=== PATIENT | female | born 1935 | race Hispanic/Latino ===

== ENCOUNTER 2018-12-09 15:00 | Observation (INO) | payer MEDICARE, OTHER ==
[~2018-12-09] VITALS: Ht 149.9 cm; Wt 67.8 kg
--- NOTE | 2018-12-09 16:43 | Diagnostic Imaging Report ---
A single frontal view of the chest. HISTORY: CHEST PAIN COMPARISON: Chest radiograph March 29, 2009 DISCUSSION: Portable technique, limits sensitivity of the exam. Soft tissue attenuation markedly limits sensitivity of the exam. Overlying monitoring leads Tubes/Lines: None Lungs and pleura: Low lung volumes result in bibasilar vascular crowding, accentuation of the pulmonary interstitial markings, central pulmonary vasculature, and the cardiac silhouette. Allowing for these limitations, the findings are as follows: Mild volume loss at the left lung base periphery greater than the right infrahilar region. No evidence of a consolidative pneumonia or pulmonary alveolar edema. No definite pleural effusion or pneumothorax is identified. Heart and mediastinum: The cardiac silhouette appears prominent. Atherosclerotic vascular calcifications at the aortic arch. Bones and soft tissues: Appear unremarkable, given this limited exam. IMPRESSION: 1. Left basilar greater than right infrahilar atelectasis. Superimposed pneumonia or aspiration may be a consideration the appropriate setting. 2. Recommend short term follow up routine PA and lateral chest radiographs, in 6 to 8 weeks, to evaluate for resolution. Signed by: Dr. Ganga Cormier D.O., M.M.M. on 12/09/2018 4:40 PM
[2018-12-09 16:57] LABS: BILIRUBIN,URINE NEGATIVE (NEGATIVE); CLARITY,URINE SL CLOUDY (CLEAR); COLOR,URINE YELLOW (YELLOW); KETONES,URINE NEGATIVE (NEGATIVE); LEUKOCYTE ESTERASE ,URINE SMALL (NEGATIVE); NITRITE,URINE NEGATIVE (NEGATIVE); PROTEIN,URINE DIPSTICK NEGATIVE (NEGATIVE); URINE UROBILINOGEN 0.2 mg/dL (0.2 - 1)
[2018-12-09 17:06] LABS: INR 0.87; PROTHROMBIN TIME 12.3 seconds (11.9-14.5)
[2018-12-09 17:07] LABS: PARTIAL THROMBOPLASTIN TIME 29.7 seconds (23.8-35.5)
[2018-12-09 17:09] LABS: BACTERIA,URINE MANY /HPF; EPITHELIAL CELLS,URINE MANY /LPF
[2018-12-09 17:15] LABS: BASOPHILS % 0.6 % (0.0-1.0); EOSINOPHILS # (AUTO) 0.1 (0.0-0.4); EOSINOPHILS % 2.1 % (0.0-6.0); HEMATOCRIT 37.5 % (34.2-44.1); HEMOGLOBIN 12.4 g/dL (12.0-16.0); LYMPHOCYTES # (AUTO) 1.3 (1.0-3.2); LYMPHOCYTES % 24.6 % (18.0-39.1); MEAN CORPUSCULAR HEMOGLOBIN 32.4 pg (28-32); MEAN CORPUSCULAR HGB CONC 33.1 g/dL (31-35); MEAN CORPUSCULAR VOLUME 97.9 fL (81-99); MONOCYTES # (AUTO) 0.5 (0.2-0.8); MONOCYTES % 8.8 % (4.4-11.3); NEUTROPHILS # (AUTO) 3.3 (2.1-6.9); NEUTROPHILS % 63.5 % (38.7-80.0); PLATELET COUNT 244 x10e3/uL (140-360); RED BLOOD COUNT 3.83 x10e6/uL (3.6-5.1); RED CELL DISTRIBUTION WIDTH 14.6 % (11.7-14.4)
[2018-12-09] MEDS ORDERED: HYDRALAZINE HCL 20 MG/ML VIAL IV ONE (17:58)
[2018-12-09 18:02] LABS: ALBUMIN 3.5 g/dL (3.5-5.0); ANION GAP 13.2 mmol/L (8-16); CALCIUM 9.5 mg/dL (8.4-10.2); CREATININE, SERUM 1.08 mg/dL (0.57-1.11); POTASSIUM 3.2 mmol/L (3.5-5.1)
[2018-12-09] MEDS ORDERED: ASPIRIN 81 MG CHEW TAB PO ONE (18:15)
--- OUTSIDE RECORDS SUMMARY | 2018-12-09 18:17 | XMS REPORT ---
Author Author [facility] Address Unknown Phone Unavailable Care Team Providers Care R D Engineer Name Role Phone Brit KENT Unavailable Unavailable Problems This patient has no known problems. Allergies, Adverse Reactions, Alerts This patient has no known allergies or adverse reactions. Medications This patient has no known medications. Results Test Description Test Time Test Comments Text Results Atomic Results Result Comments CHEST SINGLE (PORTABLE) 2018-12-09 16:38:00 [facility] [address] [place] [address] Patient Name: ALESSANDRA MARQUES MR #: [id number] : 1935 Age/Sex: 83/F Req #: [id number] Adm Physician: Ordered by: CALEB KENT MD Report #: [id number] Location: ER Room/Bed: Procedure: [id number] DX/CHEST SINGLE (PORTABLE) Exam Date: 12/09/18 Exam Time: 1620 REPORT STATUS: Signed A single frontal view of the chest. HISTORY: CH EST PAIN COMPARISON: Chest radiograph March 29, 2009 DISCUSSION: Portable technique, limits sensitivity of the exam. Soft tissue attenuation markedly limits sensitivity of the exam. Overlying monitoring leads Tubes/Lines: None Lungs and pleura: Low lung volumes result in bibasilar vascular crowding, accentuation of the pulmonary interstitial markings, central pulmonary vasculature, and the cardiac silhouette. Allowing for these limitations, the findings are as follows: Mild volume loss at the left lung base periphery greater than the right infrahilar region. No evidence of a consolidative pneumonia or pulmonary alveolar edema. No definite pleural effusion or pneumothorax is identified. Heart and mediastinum: The cardiac silhouette appears prominent. Atherosclerotic vascular calcifications at the aortic arch. Bones and soft tissues: Appear unremarkable, given this limited exam. IMPRESSION: 1. Left basilar greater than right infrahilar atelectasis. Superimposed pneumonia or aspiration may be a consideration the appropriate setting. 2. Recommend short term follow up routine PA and lateral chest radiographs, in 6 to 8 weeks, to evaluate for resolution. Signed by: Dr. Charles Cormier D.O., M.M.M. on 12/09/2018 4:40 PM Dictated By: CHARLES CORMIER DO 1640 Transcribed By: RODERICK on 12/09/18 1640 COPY TO: CALEB KENT MD
[2018-12-09 18:21] LABS: CREATINE KINASE MB 1.1 ng/mL (0-5.0)
--- NOTE | 2018-12-09 19:02 | NUR ---
tele #[phone] placed on [pt.
[2018-12-09] MEDS: SODIUM CHLORIDE 0.9% 1000ML 1,000 ML IV SCH (19:31)
[2018-12-09 19:56] VITALS: BP 185/73
[2018-12-09 20:00] VITALS: BP 134/63
[2018-12-09] MEDS ORDERED: ULTRAM 50MG50 MG PO (20:14)
[2018-12-09] MEDS ORDERED: MECLIZINE HCL12.5 MG PO (20:14)
[2018-12-09 22:23] VITALS: BP 134/63
[2018-12-09 23:40] VITALS: BP 98/68
[2018-12-10 02:12] LABS: CREATINE KINASE MB 1.2 ng/mL (0-5.0)
[2018-12-10 04:40] VITALS: BP 137/74
[2018-12-10 05:27] LABS: BASOPHILS % 0.9 % (0.0-1.0); EOSINOPHILS # (AUTO) 0.1 (0.0-0.4); EOSINOPHILS % 2.2 % (0.0-6.0); HEMATOCRIT 32.8 % (34.2-44.1); HEMOGLOBIN 10.3 g/dL (12.0-16.0); LYMPHOCYTES # (AUTO) 1.2 (1.0-3.2); MEAN CORPUSCULAR HEMOGLOBIN 31.5 pg (28-32); MEAN CORPUSCULAR HGB CONC 31.4 g/dL (31-35); MEAN CORPUSCULAR VOLUME 100.3 fL (81-99); MONOCYTES # (AUTO) 0.4 (0.2-0.8); MONOCYTES % 9.5 % (4.4-11.3); NEUTROPHILS # (AUTO) 2.8 (2.1-6.9); NEUTROPHILS % 61.2 % (38.7-80.0); PLATELET COUNT 206 x10e3/uL (140-360); RED BLOOD COUNT 3.27 x10e6/uL (3.6-5.1); RED CELL DISTRIBUTION WIDTH 14.3 % (11.7-14.4)
[2018-12-10 05:48] LABS: ALBUMIN/GLOBULIN RATIO 1.1 (0.8-2.0); ANION GAP 11.5 mmol/L (8-16); CALCIUM 8.8 mg/dL (8.4-10.2); CREATININE, SERUM 0.93 mg/dL (0.57-1.11); POTASSIUM 3.5 mmol/L (3.5-5.1)
--- NOTE | 2018-12-10 06:41 | Diagnostic Imaging Report ---
Examination: Single AP view of the chest. COMPARISON: December 09, 2018 INDICATION: Chest pain DISCUSSION: Lines/tubes: None. Lungs: The lungs are well inflated and clear. No pneumonia or pulmonary edema. Pleura: No pleural effusion or pneumothorax. Heart and mediastinum: The heart and the mediastinum are unremarkable. Bones and soft tissues: No acute bony abnormalities. IMPRESSION: 1. No acute cardiopulmonary abnormalities. Signed by: Dr. Obdulio Ma M.D. on 12/10/2018 6:38 AM
[2018-12-10 08:05] VITALS: BP 143/74
[2018-12-10 08:08] VITALS: BP 143/74
[2018-12-10] MEDS: SODIUM CHLORIDE 0.9% 1000ML 1,000 ML IV SCH (08:32)
[2018-12-10] MEDS ORDERED: ASPIRIN 81 MG ENTERIC COATED PO SCH (09:00)
[2018-12-10 10:54] LABS: CREATINE KINASE MB 1.1 ng/mL (0-5.0)
[2018-12-10 11:26] VITALS: BP 110/63
[2018-12-10] MEDS ORDERED: LIPITOR20 MG PO (13:29)
[2018-12-10] MEDS ORDERED: ECOTRIN81 MG (13:29)
--- NOTE | 2018-12-10 21:19 | Discharge Summary ---
PRIMARY CARE PHYSICIAN: Sofie Rose MD CHIEF COMPLAINT: Chest pain. SUMMARY: The patient was discharged home today. Cardiac enzymes negative. EKG, otherwise unremarkable. She had a sinus bradycardia at 60 beats per minute, asymptomatic. Repeated EKG showed normal sinus rhythm. The patient is otherwise, stable. She has no chest pain now. Cardiac enzymes are negative. Chest x-ray unremarkable. Discussed with the patient and her daughter and they want to go home today. Follow up with a construction technician, Dr. Carrizales. I also has referred to go for outpatient workup including echocardiogram and stress test. The patient is stable. Because of her age, I went ahead and put the patient on Ecotrin 81 mg daily and Lipitor 10 mg at night. She will resume her other home medication. No blood pressure medication needed. No beta-erick needed because of the episode of bradycardia and heart rate is 60 beats per minute now. The patient is comfortable, asymptomatic, discharged home today. Follow up with Dr. Vazquez next week. MD ADRIENNE Trujillo/SILVINAL /[id number]
== END 2018-12-10 13:50 | disposition home or self-care (01) ==
LOC: ER 15:00 → ERHOLD 18:13 → IMCU 19:20
PROVIDERS: ADMIT Internal Medicine; ATTEND Internal Medicine
DX: R07.89 Other chest pain (principal); Z82.49 Family history of ischemic heart disease and other diseases of the circulatory system; Z83.3 Family history of diabetes mellitus; I10 Essential (primary) hypertension; M19.90 Unspecified osteoarthritis, unspecified site; R00.1 Bradycardia, unspecified
CPT/HCPCS: 36415; 71045 ×2; 80053 ×2; 81001; 82550 ×2; 82553 ×2; 83880; 84484 ×2; 85025 ×2; 85610; 85730; 93005 ×2; 99284; G0378 ×2; J0360; J7030 ×2

== ENCOUNTER → 2019-05-19 | Outpatient (CLI) | payer MEDICARE ==
[~2019-05-19] MED LIST: ECOTRIN81 MG; LIPITOR20 MG PO; MECLIZINE HCL12.5 MG PO; ULTRAM 50MG50 MG PO
--- NOTE | 2019-05-19 16:05 | Diagnostic Imaging Report ---
Bone Mineral Density, 05/19/2019. Clinical History: Postmenopausal, Osteoporosis Screening Comparison: None. Findings: Bone Mineral Density Measurement (BMD) - Lumbar Spine: 0.826 gm/cm2 Left Femoral Neck: 0.489 gm/cm2 Standard Deviation as compared to the young adult population (T -score)- Lumbar Spine: -2.0 Left Femoral Neck: -3.3 Standard Deviation as compared to the age matched controls (Z-score)- Lumbar Spine: 0.8 Left Femoral Neck: 0.9 IMPRESSION: These findings are consistent with osteopenia of the lumbar spine. There is 1-2 times increased risk of an osteoporotic fracture of the lumbar spine as compared to the young adult population. 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 There is right or then a 2 times increased risk of an osteoporotic fracture of the femoral necks as compared to the young adult population. Diagnostic criteria (World Health Organization)- Normal: BMD measurement less than one standard deviation from young adult population Osteopenia: BMD measurement between 1 and 2.5 standard deviations below Osteoporosis: BMD measurement greater than 2.5 standard deviations below Severe osteoporosis: Osteoporosis and one or more fragility fractures Signed by: Minesh Lawrence MD on 05/19/2019 4:02 PM
--- NOTE | 2019-06-01 10:20 | Diagnostic Imaging Report ---
#[id number] - [id number] #BILATERAL DIGITAL SCREENING MAMMOGRAM WITH CAD: 05/19/2019 CLINICAL: Routine screening. No prior exams were available for comparison. Current study contains 6 films. The tissue of both breasts is predominantly fatty. Current study was also evaluated with a Computer Aided Detection (CAD) system. There are benign vascular calcifications in both breasts. Benign appearing calcifications are noted bilaterally. There are benign nodes in both breasts. No significant masses, calcifications, or other findings are seen in either breast. IMPRESSION: BENIGN There is no mammographic evidence of malignancy. A 1 year screening mammogram is recommended. The patient will be notified by letter of the results. ANDIE ARSHAD M.D. ct/penrad:05/31/2019 12:32:06 Storage Garage Attendant: Shruthi TOURE)(M), [facility] letter sent: Normal Exam Mammogram BI-RADS: 2 Benign
== END ==
LOC: MAMMO 12:41
PROVIDERS: ATTEND Internal Medicine
DX: Z12.31 Encounter for screening mammogram for malignant neoplasm of breast (principal); M81.0 Age-related osteoporosis without current pathological fracture
CPT/HCPCS: 77067; 77080

== ENCOUNTER → 2020-01-19 | Outpatient (CLI) | payer MEDICARE ==
[~2020-01-19] MED LIST changes: +IOPAMIDOL 370 MG/ML 200 ML INFUS..BTL INJ ONE; +LISINOPRIL10 MG PO; +SODIUM CHLORIDE 0.9% 500ML 500 ML ONE; +SODIUM CHLORIDE 0.9% 50ML 50 ML ONE; +TRULANCE3 MG PO; +[UNRECOGNIZED DRUG - OTHER] PO; +[UNRECOGNIZED DRUG - OTHER] PO
[2020-01-19 11:34] LABS: CREATININE, SERUM 1.09 mg/dL (0.57-1.11)
--- NOTE | 2020-01-19 14:16 | Diagnostic Imaging Report ---
EXAM: CT Abdomen and Pelvis WITH contrast INDICATION: Lower abdominal pain. COMPARISON: Chest radiograph 03/28/2019. TECHNIQUE: Abdomen and pelvis were scanned utilizing a multidetector helical scanner from the lung base to the pubic symphysis after administration of IV contrast. Coronal and sagittal reformations were obtained. Routine protocol was performed. Scan was performed during portal venous phase. IV CONTRAST: 100 cc of Isovue 370. ORAL CONTRAST: Water. COMPLICATIONS: None RADIATION DOSE: Total DLP: 747.4 mGy*cm Estimated effective dose: (DLP x 0.015 x size factor) mSv CTDIvol has been reviewed. It is below the limits set by the Radiation Protocol Committee (RPC). FINDINGS: LINES and TUBES: None. LOWER THORAX: Left lower lobe calcified granuloma. Patchy dependent atelectasis. Coronary atherosclerosis. Mitral annular calcifications. Aortic valvular calcifications. HEPATOBILIARY: Diffuse hepatic steatosis. Possible post surgical changes in the right hepatic lobe. No evidence of focal lesion. No biliary ductal dilation. GALLBLADDER: Status post cholecystectomy. SPLEEN: No splenomegaly. PANCREAS: No focal masses or ductal dilatation. ADRENALS: A 9 mm indeterminate right adrenal nodule (series 2, image 25; 75 HU). KIDNEYS/URETERS: Kidneys enhance symmetrically. No evidence of hydronephrosis, solid mass, or stone. GI TRACT: No evidence of wall thickening or distension. Appendix is normal. PELVIC ORGANS/BLADDER: Decompressed bladder with circumferential wall thickening and surrounding inflammatory changes. Status post hysterectomy. LYMPH NODES: No lymphadenopathy. VESSELS: There is moderate to severe atherosclerotic disease in the aorta and major arterial branches. Focal ectasia of the infrarenal abdominal aorta. PERITONEUM / RETROPERITONEUM: No free air or fluid. BONES AND SOFT TISSUES: Diffuse osteopenia. Moderate degenerative changes of the visualized spine. Grade 1 anterolisthesis of L4 on L5. Moderate wedge compression deformity at T11, unchanged. Subacute healing right superior and inferior pubic ramus fractures. Fat-containing umbilical and bilateral inguinal hernias. CONCLUSION: Circumferential bladder wall thickening with inflammatory changes, suggestive of cystitis in the appropriate clinical setting. Indeterminate 9 mm right adrenal nodule, for which a follow-up adrenal protocol CT or MRI may be considered. Diffuse mild hepatic steatosis. Signed by: Dr. Eloisa Baxter MD on 01/19/2020 2:13 PM
== END ==
LOC: CT 10:41
PROVIDERS: ATTEND Internal Medicine Gastroenterology
DX: R10.30 Lower abdominal pain, unspecified (principal)
CPT/HCPCS: 36415; 74177; 82565; 84520; 96360; J7040; Q9967

== ENCOUNTER → 2020-01-29 | Day surgery (SDC) | payer MEDICARE, OTHER ==
[2020-01-24 14:22] LABS: BASOPHILS # (AUTO) 0.1 (0.0-0.1); BASOPHILS % 0.7 % (0.0-1.0); EOSINOPHILS # (AUTO) 0.2 (0.0-0.4); EOSINOPHILS % 2.8 % (0.0-6.0); HEMATOCRIT 38.5 % (34.2-44.1); LYMPHOCYTES # (AUTO) 1.5 (1.0-3.2); LYMPHOCYTES % 20.1 % (18.0-39.1); MEAN CORPUSCULAR HEMOGLOBIN 30.8 pg (28-32); MEAN CORPUSCULAR HGB CONC 31.2 g/dL (31-35); MONOCYTES # (AUTO) 0.7 (0.2-0.8); MONOCYTES % 9.3 % (4.4-11.3); NEUTROPHILS # (AUTO) 4.8 (2.1-6.9); NEUTROPHILS % 66.7 % (38.7-80.0); PLATELET COUNT 280 x10e3/uL (140-360); RED BLOOD COUNT 3.89 x10e6/uL (3.6-5.1); RED CELL DISTRIBUTION WIDTH 14.5 % (11.7-14.4)
[~2020-01-29] MED LIST changes: +FENTANYL CITRATE/PF 100MCG/2 ML INJ ONE; +GLUCAGON FOR INJ 1 MG VIAL ONE; +HYOSCYAMINE 0.125 MG TAB ONE; -IOPAMIDOL 370 MG/ML 200 ML INFUS..BTL INJ ONE; +LIDOCAINE HCL 2% LOCAL INJ 5 ML SDV VIAL INJ ONE; +METOCLOPRAMIDE HCL 10 MG/2ML VIAL ONE; +ONDANSETRON HCL INJ 2MG/ML 2ML 2 MG/ML VIAL ONE; +PROPOFOL IV EMULSION 10 MG/ML 20 ML VIAL ONE; -SODIUM CHLORIDE 0.9% 500ML 500 ML ONE; -SODIUM CHLORIDE 0.9% 50ML 50 ML ONE
[2020-01-29 12:17] VITALS: BP 140/79
--- NOTE | 2020-01-29 12:53 | Operative Report ---
DATE OF PROCEDURE: 01/29/2020 SURGEON: Michael Sanchez MD PROCEDURE: EGD with biopsies and colonoscopy with polypectomy and biopsies. INDICATIONS FOR EGD: Heartburn, bloating. INDICATIONS FOR COLONOSCOPY: Colorectal cancer screening, lower abdominal pain. MEDICATIONS: The patient was done under MAC. Please see anesthesiologist's note. PROCEDURE IN DETAIL: With the patient in left lateral decubitus position, a flexible fiberoptic Olympus gastroscope was introduced into the esophagus under direct visualization without any difficulty. There was some patchy erythema noted in distal esophagus. The GE junction was somewhat nodular that was biopsied. The scope was then advanced with ease into the stomach traversing a small sliding hiatal hernia. Mucosa overlying the antrum and the body revealed some patchy erythema and low-grade to moderate edema and biopsies were obtained and sent to stain for H pylori. Pylorus was of normal contour and shape, was intubated with ease and the scope was advanced all the way to the second portion of the duodenum. Biopsies were obtained from the proximal second portion and the duodenal bulb to rule out sprue. The scope was then withdrawn back into the stomach and retroflexed, the mucosa overlying the fundus and cardia appeared to be within normal limits. The scope was then straightened out, it was subsequently withdrawn. The patient tolerated the procedure well. IMPRESSION: 1. Distal esophagitis, mild. 2. Gastroesophageal junction, somewhat nodular, biopsied. 3. Small sliding hiatal hernia. 4. Gastritis, biopsied. Biopsies sent to stain for H pylori. 5. Rule out sprue. PLAN: Follow up histology. Initiate Protonix 40 mg one p.o. q.a.m. before meals. The patient was then turned around. After adequate lubrication of the anal canal, a flexible fiberoptic Olympus colonoscope was inserted into the rectum with ease and advanced all the way to the cecum. Mucosa overlying the cecum appeared to be within normal limits. Two minute polyps were removed per cold snare polypectomy from the ascending colon. The transverse appeared to be within normal limits. Some mild patchy inflammatory changes were noted in the left colon. Random biopsies were obtained. The scope was then retroflexed into the distal rectum and small internal hemorrhoids were noted, none of which was actively bleeding. The scope was then straightened out, it was subsequently withdrawn. The patient tolerated the procedure well. IMPRESSION: 1. Ascending colon polyps x2, cold snared. 2. Mild patchy inflammatory changes, left colon, random biopsies obtained. 3. Internal hemorrhoids, none actively bleeding. PLAN: Followup histology. Initiate high-fiber, low-fat diet. Initiate high-fiber supplement. Start Align one p.o. daily. Michael Sanchez MD [facility] [place] /[id number] cc: Sofie Rose MD
== END | disposition home or self-care (01) ==
LOC: OR 09:05
PROVIDERS: ATTEND Internal Medicine Gastroenterology
DX: K21.9 Gastro-esophageal reflux disease without esophagitis (principal); Z90.49 Acquired absence of other specified parts of digestive tract; Z88.5 Allergy status to narcotic agent; R10.30 Lower abdominal pain, unspecified; R11.0 Nausea; R12 Heartburn; R14.0 Abdominal distension (gaseous); K59.09 Other constipation; Z68.29 Body mass index [BMI] 29.0-29.9, adult; R03.0 Elevated blood-pressure reading, without diagnosis of hypertension; F03.90 Unspecified dementia, unspecified severity, without behavioral disturbance, psychotic disturbance, mood disturbance, and anxiety; F41.9 Anxiety disorder, unspecified; K21.0 Gastro-esophageal reflux disease with esophagitis; K29.70 Gastritis, unspecified, without bleeding; K44.9 Diaphragmatic hernia without obstruction or gangrene; K63.5 Polyp of colon; K64.8 Other hemorrhoids; Z01.810 Encounter for preprocedural cardiovascular examination; Z01.812 Encounter for preprocedural laboratory examination; Z11.59 Encounter for screening for other viral diseases
CPT/HCPCS: 36415; 43239; 45380; 45385; 85025; 93005; J1610; J2001; J2405; J2704; J2765; U0002; 45378; J3010

== ENCOUNTER → 2020-07-22 | Outpatient (CLI) | payer MEDICARE ==
[~2020-07-22] MED LIST changes: -FENTANYL CITRATE/PF 100MCG/2 ML INJ ONE; -GLUCAGON FOR INJ 1 MG VIAL ONE; -HYOSCYAMINE 0.125 MG TAB ONE; -LIDOCAINE HCL 2% LOCAL INJ 5 ML SDV VIAL INJ ONE; -METOCLOPRAMIDE HCL 10 MG/2ML VIAL ONE; -ONDANSETRON HCL INJ 2MG/ML 2ML 2 MG/ML VIAL ONE; -PROPOFOL IV EMULSION 10 MG/ML 20 ML VIAL ONE
== END ==
LOC: US 09:17
PROVIDERS: ATTEND Family Medicine
DX: R10.9 Unspecified abdominal pain (principal); M81.0 Age-related osteoporosis without current pathological fracture
CPT/HCPCS: 76700; 77080

== ENCOUNTER 2020-10-27 10:28 | Emergency (ER) | payer OTHER, MEDICARE ==
[~2020-10-27] VITALS: Ht 149.9 cm; Wt 67.6 kg
== END 2020-10-27 18:58 | disposition other institution (70) ==
LOC: ER 10:47
DX: S02.32XA Fracture of orbital floor, left side, initial encounter for closed fracture (principal); S72.002A Fracture of unspecified part of neck of left femur, initial encounter for closed fracture; W01.0XXA Fall on same level from slipping, tripping and stumbling without subsequent striking against object, initial encounter; Y93.01 Activity, walking, marching and hiking; Y92.008 Other place in unspecified non-institutional (private) residence as the place of occurrence of the external cause; I10 Essential (primary) hypertension; E78.5 Hyperlipidemia, unspecified
CPT/HCPCS: 70450; 70486; 72125; 99284

== ENCOUNTER 2021-05-10 14:04 | Emergency (ER) | payer MEDICARE ==
[~2021-05-10] VITALS: Ht 149.9 cm; Wt 67.6 kg
[2021-05-10] MEDS ORDERED: SODIUM CHLORIDE 0.9% 1000ML 1,000 ML IV STA (14:11)
[2021-05-10 14:38] LABS: BASOPHILS % 0.5 % (0.0-1.0); EOSINOPHILS # (AUTO) 0.1 (0.0-0.4); EOSINOPHILS % 0.8 % (0.0-6.0); HEMATOCRIT 36.3 % (34.2-44.1); HEMOGLOBIN 11.4 g/dL (12.0-16.0); LYMPHOCYTES # (AUTO) 1.2 (1.0-3.2); LYMPHOCYTES % 15.8 % (18.0-39.1); MEAN CORPUSCULAR HEMOGLOBIN 31.6 pg (28-32); MEAN CORPUSCULAR HGB CONC 31.4 g/dL (31-35); MEAN CORPUSCULAR VOLUME 100.6 fL (81-99); MONOCYTES # (AUTO) 0.7 (0.2-0.8); MONOCYTES % 8.5 % (4.4-11.3); NEUTROPHILS # (AUTO) 5.8 (2.1-6.9); NEUTROPHILS % 74.1 % (38.7-80.0); PLATELET COUNT 247 x10e3/uL (140-360); RED BLOOD COUNT 3.61 x10e6/uL (3.6-5.1); RED CELL DISTRIBUTION WIDTH 14.1 % (11.7-14.4)
[2021-05-10 15:01] LABS: INR 0.96; PROTHROMBIN TIME 13.6 seconds (11.9-14.5)
[2021-05-10 15:02] LABS: PARTIAL THROMBOPLASTIN TIME 30.7 seconds (23.8-35.5)
[2021-05-10 15:13] LABS: ALBUMIN 4.2 g/dL (3.5-5.0); ALBUMIN/GLOBULIN RATIO 1.4 (0.8-2.0); CALCIUM 9.4 mg/dL (8.4-10.2); CREATININE, SERUM 1.6 mg/dL (0.57-1.11); MAGNESIUM 2.3 MG/DL (1.3-2.1)
[2021-05-10 15:19] LABS: CREATINE KINASE MB 0.5 ng/mL (0-5.0)
== END 2021-05-10 19:24 | disposition home or self-care (01) ==
LOC: ER 14:12
DX: K59.00 Constipation, unspecified (principal); Z88.5 Allergy status to narcotic agent
CPT/HCPCS: 36415; 71045; 74176; 80053; 82150; 82550; 82553; 83690; 83735; 83880; 84484; 85025; 85610; 85730; 93005; 99284; C9113; J7030